=== PATIENT | male | born 1955 | race American Indian/Alaskan Native ===

== ENCOUNTER 2018-03-19 08:49 | Emergency (ER) | payer BC ==
[2018-03-19 09:17] VITALS: BP 114/76
--- NOTE | 2018-03-19 09:46 | Emergency Department Report ---
ED Back Pain/Injury HPI - General Chief Complaint: Back Pain/Injury Stated Complaint: BACK PAIN Time Seen by Provider: 03/19/18 09:36 Source: patient Limitations: No Limitations - History of Present Illness Initial Comments: Patient is a 8-year-old male who is presenting with low back pain for the past 2 days. Patient denies any direct trauma. Patient states pain is 8 out of 10 in severity her is worse when he is moving when he is lifting up or bending forward. Patient states is been no bowel or bladder dysfunction. Patient states there is no radiation of pain. He had noted to relieve his pain. - Related Data Previous Rx's Medication Instructions Recorded Last Taken Type Cyclobenzaprine [Flexeril] 10 mg PO TID PRN #30 tablet 04/19/16 Unknown Rx Naproxen [Naprosyn] 500 mg PO BID #30 tablet 04/19/16 Unknown Rx Ibuprofen [Motrin] 600 mg PO Q8H PRN #20 tablet 03/19/18 Unknown Rx methOCARBAMOL [Robaxin TAB] 500 mg PO Q6H PRN #15 tablet 03/19/18 Unknown Rx traMADol [Ultram] 50 mg PO Q6HR PRN #10 tablet 03/19/18 Unknown Rx Allergies Allergy/AdvReac Type Severity Reaction Status Date / Time No Known Allergies Allergy Unverified 04/19/16 08:07 ED Review of Systems ROS: Stated complaint: BACK PAIN Other details as noted in HPI Comment: All other systems reviewed and negative ED Past Medical Hx - Past Medical History HEP-C Family history: diabetes ED Back Pain Physical Exam - Exam General: Vital signs noted. No distress. Alert and acting appropriately. Back/Abdomen: Yes Perilumbar Tenderness (perispinal musculature is very tight taut.), No Abdominal Tenderness, No Perithoracic Tenderness, No Sacroiliac Tenderness, No Flank Tenderness, No Straight Leg Raise Pain Neuro: Yes Normal Sensation, Yes Normal DTR's, Yes Normal Gait, No Motor Weakness ED Course Vital Signs 03/19/18 09:15 Temperature 97.8 F Pulse Rate 78 Respiratory 18 Rate Blood Pressure 114/76 O2 Sat by Pulse 98 Oximetry ED Medical Decision Making - Medical Decision Making She'll be given meds for muscle spasm be discharged home. Critical care attestation.: If time is entered above; I have spent that time in minutes in the direct care of this critically ill patient, excluding procedure time. ED Disposition Clinical Impression: Back spasm Disposition: DC-01 TO HOME OR SELFCARE Is pt being admited?: No Does the pt Need Aspirin: No Condition: Stable Instructions: Low Back Strain (ED) Referrals: PRIMARY CARE, [Primary Care Provider] - 3-5 Days
== END 2018-03-19 09:52 | disposition home or self-care (01) ==
LOC: ED 08:49
DX: M62.830 Muscle spasm of back (principal)
CPT/HCPCS: 99282